=== PATIENT | male | born 1990 | race Caucasian/White ===

== ENCOUNTER 2017-10-10 17:25 | Emergency (ER) | payer OTHER ==
[~2017-10-10] VITALS: Ht 170.2 cm; Wt 81.7 kg
[~2017-10-10 17:25] MED LIST: PANT20 PO; ZOFR4TAB3 SL
[2017-10-10 17:28] VITALS: BP 113/70; PULSE 87; RESP 18; TEMP 97.6; O2SAT 97
[2017-10-10] MEDS ORDERED: SODIUM CHLOR 0.9% 1000 ML INJ 1,000 ML IV SCH (17:51)
[2017-10-10 18:00] VITALS: RESP 16; O2SAT 99
[2017-10-10] MEDS ORDERED: FAMOTIDINE 20 MG/2 ML VIAL IV PUSH ONE (18:00)
[2017-10-10] MEDS ORDERED: SODIUM CHLORIDE 0.9% FLUSH 10 ML FLUSH IV FLUSH PRN (18:00)
[2017-10-10] MEDS ORDERED: ONDANSETRON HCL 4 MG/2 ML VIAL IVP ONE (18:00)
[2017-10-10 18:07] LABS: AUTOMATED NEUTROPHIL # 6.6 TH/MM3 (1.8-7.7); BASOPHIL % 0.5 % (0.0-2.0); EOSINOPHIL # 0.4 TH/MM3 (0-0.4); EOSINOPHIL % 4.4 % (0.0-4.0); HEMATOCRIT 47.4 % (39.0-51.0); HEMOGLOBIN 15.5 GM/DL (13.0-17.0); LYMPH % 16.9 % (9.0-44.0); LYMPHOCYTE # 1.6 TH/MM3 (1.0-4.8); MEAN CELL VOLUME 84.6 FL (80.0-100.0); MEAN CORPUSCULAR HEMOGLOBIN 27.8 PG (27.0-34.0); MEAN CORPUSCULAR HGB CONC 32.8 % (32.0-36.0); MONO % 6.7 % (0.0-8.0); MONOCYTE # 0.6 TH/MM3 (0-0.9); NEUT % 71.5 % (16.0-70.0); PLATELET COUNT 245 TH/MM3 (150-450); WHITE BLOOD COUNT 9.2 TH/MM3 (4.0-11.0)
[2017-10-10 18:22] LABS: CHLORIDE 105 MEQ/L (98-107); SODIUM (NA) 138 MEQ/L (136-145)
[2017-10-10 18:25] LABS: CALCIUM 8.5 MG/DL (8.5-10.1)
[2017-10-10 18:26] LABS: ALBUMIN 3.8 GM/DL (3.4-5.0); BICARBONATE 25.2 MEQ/L (21.0-32.0); BLOOD UREA NITROGEN 13 MG/DL (7-18); GLUCOSE,RANDOM 84 MG/DL (74-106)
[2017-10-10 18:29] LABS: ALT (GPT) 298 U/L (12-78); AST (GOT) 107 U/L (15-37); GLOMERULAR FILTRATION RATE 90 ML/MIN (>89)
[2017-10-10 18:30] LABS: TOTAL BILIRUBIN ADULT 0.7 MG/DL (0.2-1.0); TOTAL PROTEIN 7.5 GM/DL (6.4-8.2)
--- NOTE | 2017-10-10 18:31 | PD ---
HPI Chief Complaint: GI Complaint Time Seen by Provider: 17:45 Travel History International Travel<30 days: No Contact w/Intl Traveler<30days: No Traveled to known affect area: No History of Present Illness HPI Patient is a 27 year old male who comes in complaining of nausea, vomiting, diarrhea. He says it started Sunday. He felt like he was better yesterday and was able to eat [place] and some broth. He then had [employer] and his symptoms returned. He last vomited yesterday. He has drunk water today without vomiting. He last had diarrhea a few hours before coming in. He denies any abdominal pain. He denies fever or chills. [facility]LY [facility] Past Medical History Diminished Hearing: No Past Surgical History Abdominal Surgery: Yes (HERNIA REPAIR) Appendectomy: Yes Other Surgery: Yes (HYDROCELE - DOUBLE INGUINAL HERNIA REPAIR AN ) Social History Alcohol Use: No Tobacco Use: No Substance Use: No Allergies-Medications (Allergen,Severity, Reaction): Coded Allergies: No Known Allergies (Verified Adverse Reaction, Unknown, 10/10/17) Reported Meds & Prescriptions Reported Meds & Active Scripts Active No Active Prescriptions or Reported Medications Review of Systems Except as stated in HPI: all other systems reviewed are Neg General / Constitutional: No: Fever, Chills HENT: No: Headaches, Lightheadedness Cardiovascular: No: Chest Pain or Discomfort Respiratory: No: Shortness of Breath Gastrointestinal: Positive: Nausea, Vomiting, Diarrhea, No: Abdominal Pain Genitourinary: No: Dysuria Musculoskeletal: No: Myalgias, Edema Skin: No Rash, No Change in Pigmentation Neurologic: No: Weakness, Dizziness Physical Exam Narrative GENERAL: Awake and alert, in no acute distress. SKIN: Focused skin assessment warm/dry. HEAD: Atraumatic. Normocephalic. EYES: Pupils equal and round. No scleral icterus. EOMI ENT: Mucous membranes pink and moist. NECK: Trachea midline. No JVD. CARDIOVASCULAR: Regular rate and rhythm. No murmur appreciated. RESPIRATORY: No accessory muscle use. Clear to auscultation. Breath sounds equal bilaterally. GASTROINTESTINAL: Abdomen soft, non-tender, nondistended. MUSCULOSKELETAL: No obvious deformities. No clubbing. No cyanosis. No edema. NEUROLOGICAL: Awake and alert. No obvious cranial nerve deficits. Motor grossly within normal limits. Normal speech. PSYCHIATRIC: Appropriate mood and affect; insight and judgment normal. Data Data Last Documented VS Vital Signs Date Time Temp Pulse Resp B/P (MAP) Pulse Ox O2 Delivery O2 Flow Rate FiO2 10/10/17 18:00 16 99 10/10/17 17:28 97.6 87 113/70 (84) Orders Orders Complete Blood Count With Diff (10/10/17 17:51) Comprehensive Metabolic Panel (10/10/17 17:51) Iv Access Insert/Monitor (10/10/17 17:51) Ecg Monitoring (10/10/17 17:51) Oximetry (10/10/17 17:51) Ondansetron Inj (Zofran Inj) (10/10/17 18:00) Sodium Chlor 0.9% 1000 Ml Inj (Ns 1000 M (10/10/17 17:51) Sodium Chloride 0.9% Flush (Ns Flush) (10/10/17 18:00) Famotidine Inj (Pepcid Inj) (10/10/17 18:00) Us Abdomen Liver (10/10/17 ) Labs Laboratory Tests Test 10/10/17 18:00 White Blood Count 9.2 TH/MM3 Red Blood Count 5.60 MIL/MM3 Hemoglobin 15.5 GM/DL Hematocrit 47.4 % Mean Corpuscular Volume 84.6 FL Mean Corpuscular Hemoglobin 27.8 PG Mean Corpuscular Hemoglobin Concent 32.8 % Red Cell Distribution Width 12.0 % Platelet Count 245 TH/MM3 Mean Platelet Volume 9.0 FL Neutrophils (%) (Auto) 71.5 % Lymphocytes (%) (Auto) 16.9 % Monocytes (%) (Auto) 6.7 % Eosinophils (%) (Auto) 4.4 % Basophils (%) (Auto) 0.5 % Neutrophils # (Auto) 6.6 TH/MM3 Lymphocytes # (Auto) 1.6 TH/MM3 Monocytes # (Auto) 0.6 TH/MM3 Eosinophils # (Auto) 0.4 TH/MM3 Basophils # (Auto) 0.0 TH/MM3 CBC Comment DIFF FINAL Differential Comment Blood Urea Nitrogen 13 MG/DL Creatinine 1.00 MG/DL Random Glucose 84 MG/DL Total Protein 7.5 GM/DL Albumin 3.8 GM/DL Calcium Level 8.5 MG/DL Alkaline Phosphatase 120 U/L Aspartate Amino Transf (AST/SGOT) 107 U/L Alanine Aminotransferase (ALT/SGPT) 298 U/L Total Bilirubin 0.7 MG/DL Sodium Level 138 MEQ/L Potassium Level 3.6 MEQ/L Chloride Level 105 MEQ/L Carbon Dioxide Level 25.2 MEQ/L Anion Gap 8 MEQ/L Estimat Glomerular Filtration Rate 90 ML/MIN MDM Medical Decision Making Medical Screen Exam Complete: Yes Emergency Medical Condition: Yes Medical Record Reviewed: Yes Differential Diagnosis gastroenteritis vs gastritis vs colitis vs electrolyte abnormalities vs dehydration Narrative Course Patient is a 27 year old male who comes in complaining of nausea, vomiting, diarrhea. P Exam shows no tenderness to palpation of the abdomen. IV established, labs sent. Labs show elevated AST and ALT. Patient denies excessive alcohol use, denies taking any Tylenol. It is likely the elevated liver enzymes a secondary to viral illness. Ultrasound of the right upper quadrant performed shows gallstones, no signs of cholecystitis, no abnormalities of the liver. Patient advised of the results. He is advised follow-up with his primary care doctor for repeat lab work in the next couple of weeks. He is advised drink plenty of fluids. Advised to eat a bland diet. Advised to return as needed for any worsening symptoms. Diagnosis Primary Impression: Nausea, vomiting and diarrhea Additional Impression: Elevated liver enzymes Patient Instructions: Acute Nausea and Vomiting (ED), General Instructions Additional Instructions: Your AST and ALT were elevated today. You need to have these rechecked in the next couple of weeks to make sure they have returned to normal. Avoid alcohol use or Tylenol use. Drink plenty of fluids and eat a bland diet. Follow up with your doctor. Return to the ED as needed for any worsening symptoms. Scripts No Active Prescriptions or Reported Meds Disposition: 01 DISCHARGE HOME Condition: Stable Alena Peacock MD Oct 10, 2017 18:31
[2017-10-10 18:32] LABS: ALKALINE PHOSPHATASE 120 U/L (45-117)
[2017-10-10 20:00] VITALS: BP 120/76; PULSE 66; RESP 16; O2SAT 100
--- NOTE | 2017-10-10 21:29 | RADRPT ---
EXAM DATE/TIME: 10/10/2017 19:46 [facility] COMPARISON: No previous studies available for comparison. INDICATIONS : Nausea and vomiting. MEDICAL HISTORY : Nausea. Vomiting. SURGICAL HISTORY : Appendectomy. Inguinal hernia repair. ENCOUNTER: Initial ACUITY: 4-6 days PAIN SCORE: 0/10 LOCATION: Bilateral upper quadrant MEASUREMENTS: LIVER: 14.4 cm length COMMON DUCT: 3 mm RIGHT KIDNEY: 10.5 x 5.6 x 4.5 cm SPLEEN: 11.2 cm length FINDINGS: The gallbladder is filled with sludge and tiny stones without gallbladder wall thickening, or pericho lecystic fluid. The visualized liver, head of the pancreas, and right kidney appear grossly intact f or technique. CONCLUSION: Cholelithiasis. Shiv Campos MD on October 10, 2017 at 21:26 Board Certified Radiologist. This report was verified electronically.
[2017-10-10 21:47] VITALS: BP 118/76
== END 2017-10-10 21:52 | disposition home or self-care (01) ==
LOC: PHED 17:25
DX: R11.2 Nausea with vomiting, unspecified (principal); R19.7 Diarrhea, unspecified; R74.8 Abnormal levels of other serum enzymes; K80.20 Calculus of gallbladder without cholecystitis without obstruction
CPT/HCPCS: 76705; 80053; 85025; 96361; 96374; 96375; 99284; J2405; J7030